=== PATIENT | female | born 1995 | race Caucasian/White ===

== ENCOUNTER 2017-04-19 11:27 | Emergency (ER) | payer SELFPAY ==
[2017-04-19] MEDS ORDERED: DIPHTH,PERTUSS(ACELL),TET VAC 0.5 ML VIAL IM ONE ×2 (12:05→12:25)
--- NOTE | 2017-04-19 12:10 | ERNOTE ---
Medical Problem HPI - Narrative Date of Service: 04/19/17 - General Chief Complaint: Laceration Time Seen by Provider: 04/19/17 12:00 Source: patient Exam Limitations: no limitations - Immun/Allergies/Home Medications Immunizations: IMMUNIZATION HX Immunizations Up to Date Yes History of Influenza Vaccine No Hx Pneumococcal Vaccination No Allergies/Adverse Reactions: Allergies amoxicillin [From Augmentin] Adverse Reaction (Intermediate, Verified 04/19/17 11:39) Other cetirizine [From Zyrtec] Adverse Reaction (Intermediate, Verified 04/19/17 11:39 ) Other clavulanic acid [From Augmentin] Adverse Reaction (Intermediate, Verified 11:39) Other Home Medications: HOME MEDICATIONS DULoxetine HCL [Cymbalta] 20 mg PO DAILY 04/19/17 [Last Taken Unknown] Ethinyl Estradiol/Drospirenone [Gianvi 3 mg-0.02 mg Tablet] 1 each PO DAILY 06/26 [Last Taken Unknown] - History of Present History Narrative: Pt. comes in with c/o cutting her R fifth finger on a guillotine style supervisor paper coating just prior to arrival. Cut was closed and stopped bleeding before arrival to ER using pressure. Pt. states that last tetanus was approximately 10 years ago. Pt. denies any numbness, tingling, SOB, fever, or decreased ROM. Review of Systems - Review of Systems Constitutional: Present: no symptoms reported EYE: Present: no symptoms reported ENT: Present: no symptoms reported Respiratory: Present: no symptoms reported. Absent: shortness of breath, cough , wheezing Cardiology: Present: no symptoms reported. Absent: chest pain, palpitations, edema Gastrointestinal/Abdominal: Present: no symptoms reported Genitourinary: Present: no symptoms reported Musculoskeletal: Present: no symptoms reported Skin: Present: other - laceration R fifth finger dorsal - Patient's Past Medical History Patient History - Medical: Anxiety Patient History - Cardiac/Respiratory: No pertinent hx Patient History - Cancer: No Hx of Cancer Patient History - Surgical Procedures: T & A Patient History - Other: None - Family History Grandmother Family History - Medical: Diabetes Type 2 Family History - Cancer: Pancreatic - Social History Living Situations: home Abuse History: No History of abuse Psych History: Hx of Anxiety Smoking Status: Never smoker Have you smoked in the past 12 months: No Alcohol Use: none Drug Use: none - Immunizations Immunizations Up to Date: Yes Hx Pneumococcal Vaccination: No History of Influenza Vaccine: No Physical Exam - Physical Exam General Appearance: Present: wd/wn, alert, no apparent distress Head Exam: Present: normal inspection, no evidence of injury Eye Exam: Normal inspection: bilateral, PERRL: bilateral, EOMI: bilateral Respiratory: Present: no respiratory distress, normal breath sounds, no accessory muscle use, chest nontender, lungs clear Cardiovascular/Chest: Present: regular rate, rhythm, no murmur, normal peripheral pulses Neurological Exam: Present: alert, oriented, normal mood/affect, no motor/ sensory deficits Skin Exam: Present: other - superficial laceration L fifth finger partial thickness closed no active bleeding 1cm in length ED Progress - Vital Signs Patient's Vital Signs:: I have reviewed the patient's vital signs. Vital Signs: Vital Signs 04/19/17 11:33 Temperature 36.9 C Pulse Rate 73 Respiratory 20 Rate Blood Pressure 156/81 O2 Sat by Pulse 97 Oximetry - Progress/Reassessment Chief Complaint: Laceration Departure - Departure Clinical Impression: Laceration Disposition: Home self-care Condition: Good Instructions: Laceration Care, Adult, [id number] Additional Instructions: Please apply neosporin or Bacitracin twice a day and change bandage for 5 days.
--- OUTSIDE RECORDS SUMMARY | 2017-04-19 12:11 | XMS REPORT | Summary of Care ---
:1995 Author Organization [facility] Address [address] [place] [address] Care Team Providers Name Role Phone Michelle Pate Primary Care Physician Encounter Date(s): 02/04/16 - 02/04/16 [facility], [address] [place] [address]- [facility] Discharge Disposition: 01 Discharged to Home or Self Care Attending Physician: GRICELDA Ratliff Referring Physician: GRICELDA Ratliff Vital Signs No data available for this section Problem List No data available for this section Allergies, Adverse Reactions, Alerts Substance Reaction Severity Status Augmentin mood changes Active ZyrTE mood changes Active Medications Claritin mg, 0 Refill(s), Start Date: 05/11/15 11:13:00 CDT Start Date: 05/11/15 Status: Orderedminocycline Oral, 0 Refill(s), Start Date: 05/11/15 11:12:00 CDT Start Date: 05/11/15 Status: Orderedpantoprazole Daily, 0 Refill(s), Start Date: 05/11/15 11:12:00 CDT Start Date: 05/11/15 Status: OrderedYaz 3 mg-0.02 mg oral tablet 1 tab(s), Oral, Daily, # 84 tab(s), 4 Refill(s), Start Date: 06/22/15 10:03:49 CDT, Pharmacy: [id number] Start Date: 06/22/15 Status: OrderedYaz 3 mg-0.02 mg oral tablet 1 tab(s), Oral, Daily, # 28 tab(s), 1 Refill(s), Start Date: 05/11/15 11:50:00 CDT, Pharmacy: [id number] Start Date: 05/11/15 Stop Date: 06/22/15 Status: Completed Results No data available for this section Immunizations Vaccine Date Refusal Reason human papillomavirus vaccine 02/04/16 human papillomavirus vaccine1 06/22/15 1Result Comment: PT APPEARED TO TOLERATE WELL. 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
--- OUTSIDE RECORDS SUMMARY | 2017-04-19 12:11 | XMS REPORT | CCD ---
:1995 Author Name ASHLIE BATRES Address [address] Unavailable [place], [place] [id number] Care Team Providers Name Role Phone MIKE HARRINGTON Attending Physician Unavailable Vital Signs Unknown or Not Available. Allergies Unknown or Not Available. Procedures Procedure Code Procedure Type Date CULTURE URINE [id number] SNOMED CT 10/30/2015 History of Immunizations Unknown or Not Available. Problems Unknown or Not Available. Results Unknown or Not Available. Active Medications Unknown or Not Available. Medications Administered During Visit Unknown or Not Available. Encounters Encounter Diagnosis Diagnosis Code Start Date Increased frequency of urination [id number] 10/30/2015 Social History Unknown or Not Available. Patient Decision Aids Unknown or Not Available. Discharge Instructions You were admitted to [facility] on 10/30/2015 14:07 with a principal diagnosis of Frequency of micturition You were discharged from [facility] on 10/30/2015 14:07 Should you have any questions prior to discharge, please contact a member of your healthcare team. If you have left the hospital and have any questions, please contact your primary care physician. Chief Complaint and Reason For Visit Unknown or Not Available. Function Status Unknown or Not Available. Plan of Care Unknown or Not Available. Referral/Transition of Care Unknown or Not Available.
--- OUTSIDE RECORDS SUMMARY | 2017-04-19 12:11 | XMS REPORT | Summary of Care ---
:1995 Author Organization [facility] Address [address] [place] [address] Care Team Providers Name Role Phone Michelle Pate Primary Care Physician Encounter Date(s): 02/04/16 - 02/04/16 [facility], [address] [place] [address]- [facility] Discharge Disposition: 01 Discharged to Home [...] Refill(s), Start Date: 06/22/15 10:03:49 CDT, Pharmacy: [id number] Start Date: 06/22/15 Status: OrderedYaz 3 mg-0.02 mg oral tablet 1 tab(s), Oral, Daily, # 28 tab(s), 1 Refill(s), Start Date: 05/11/15 11:50:00 CDT, Pharmacy: [id number] Start Date: 05/11/15 Stop Date: 06/22/15 Status: Completed Results No data available for this section Immunizations Vaccine Date Refusal Reason human papillomavirus vaccine 02/04/16 human papillomavirus vaccine1 06/22/15 1Result Comment: PT APPEARED TO TOLERATE WELL. 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
[2017-04-20 16:28] VITALS: BP 144/82
== END 2017-04-19 12:34 | disposition home or self-care (01) ==
LOC: ER 11:27
DX: S61.216A Laceration without foreign body of right little finger without damage to nail, initial encounter (principal); W26.0XXA Contact with knife, initial encounter; Y93.G3 Activity, cooking and baking; Y92.9 Unspecified place or not applicable; Z23 Encounter for immunization; F41.9 Anxiety disorder, unspecified